=== PATIENT | female | born 1935 | race Caucasian/White ===

== ENCOUNTER 2018-03-27 08:57 | Day surgery (SDC) | payer OTHER ==
--- NOTE | 2018-03-24 14:47 | HP ---
Admitting History and Physical - Primary Care Physician PCP: Diaz Campos - Admission Chief Complaint: Recurrent right breast cancer History of Present Illness: 82 year old female who underwent right breast wide excision SNBX 12/14/2010 for 8mm well differentiated ductal cancer clear margins ER/[place]+ Her2 neg. no RT recommended and she could not tolerate endocrine therapy. She had a palpable right retroareolar density which we excisied in office. 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 History Source: Patient Limitations to Obtaining History: No Limitations - Past Medical History Cardiovascular: Yes: Hyperlipdemia - Past Surgical History Past Surgical History: Yes: Tonsillectomy (1953) Additional Past Surgical History: breast augmentation 1987 ankle surgery - Smoking History Smoking history: Former smoker Have you smoked in the past 12 months: No If you are a former smoker, when did you quit?: 9 years ago - Alcohol/Substance Use Hx Alcohol Use: Yes (do not drink since ) Home Medications - Allergies Allergies/Adverse Reactions: Allergies Allergy/AdvReac Type Severity Reaction Status Date / Time No Known Drug Allergies Allergy Verified 03/21/18 10:39 - Home Medications Home Medications: Ambulatory Orders Atorvastatin Ca [Lipitor] 10 mg PO HS 07/27/13 Family Disease History - Family Disease History Family Disease History: CA: Brother (prostate ca 72) Physical Examination Constitutional: Yes: Well Nourished Breast(s): Yes: Other (Left breast negative well healed right breast incision upper inner aspect . palpable right areolar density, no palpable adenopathy bilaterally) Problem List - Problems (1) Recurrent cancer of right breast Code(s): C50.911 - MALIGNANT NEOPLASM OF UNSP SITE OF RIGHT FEMALE BREAST Assessment/Plan right breast central wide excision, sentenel node biopsy ,lymphoscintogram, possible axillary node dissection, exchange of implant
[2018-03-27 09:31] VITALS: BMI 21.5
[2018-03-27] MEDS ORDERED: PROPOFOL 20 ML ONE (10:07)
[2018-03-27] MEDS ORDERED: SUCCINYLCHOLINE CHLORIDE 200 MG/10 ML VIAL ONE (10:07)
[2018-03-27] MEDS ORDERED: ePHEDrine SULFATE 50 MG/1 ML AMPULE ONE (10:31)
[2018-03-27] MEDS ORDERED: ONDANSETRON 4 MG/2 ML VIAL IVPUSH PRN ×2 (11:10→11:52)
[2018-03-27] MEDS ORDERED: KETOROLAC TROMETHAMINE 30 MG/1 ML VIAL IVPUSH PRN (11:10)
[2018-03-27] MEDS ORDERED: DEXTROSE 5%-0.45% SALINE 1,000 ML IV SCH (11:15)
[2018-03-27] MEDS ORDERED: LIDOCAINE HCL 2% JELLY (5 ML/TUBE) ONE (11:25)
[2018-03-27] MEDS ORDERED: DEXAMETHASONE SOD PHOSPHATE 4 MG/1 ML VIAL ONE (11:25)
[2018-03-27] MEDS ORDERED: ceFAZolin SODIUM 1 GM VIAL ONE (11:25)
[2018-03-27] MEDS ORDERED: PROMETHAZINE HCL 25 MG/1 ML VIAL IVPUSH PRN (11:52)
[2018-03-27] MEDS ORDERED: oxyCODONE HCL 5 MG TABLET PO PRN ×2 (11:52)
--- NOTE | 2018-03-27 13:18 | OP ---
DATE OF OPERATION: 03/27/2018 PREOPERATIVE DIAGNOSIS: Recurrent retroareolar right breast cancer. POSTOPERATIVE DIAGNOSIS: Recurrent retroareolar right breast cancer. PROCEDURE: Right breast central wide excision with right axillary sentinel lymph node biopsy and exchange of implant by Plastic Surgery. ANESTHESIA: General laryngeal mask airway. PRIMARY SURGEON: Jacquie Campos MD TELEPHONE INTERCEPTOR OPERATOR: RADHA Mata PRIMARY SURGEON FOR THE EXCHANGE OF IMPLANT AND PLACEMENT OF ALLODERM: Jacquie Robles MD COMPLICATIONS: None. Briefly, the patient is an 82-year-old, G2, P2, white female, who was initially diagnosed with a right breast cancer back in November 2010 and underwent a partial mastectomy, sentinel lymph node biopsy for an 8-mm, well-differentiated, invasive duct cancer which was ER/[place] positive, HER2/[place]ah negative. MammaPrint showed low-risk luminal type. She did not receive chemotherapy and was seen by Radiation Oncology. It was felt, given her age, it could be avoided. She could not tolerate therapy. She was being followed and was noted to have a palpable density in the retroareolar region of the right breast nipple-areolar complex, and biopsy showed a well-differentiated, invasive duct cancer which was again ER/[place] strongly positive, HER2/aleah negative with a low Ki-67. MRI was performed, just showing localized disease. She was advised on undergoing a central wide excision with removal of the nipple-areolar complex and exchange of the implant and placement of AlloDerm for radiation postoperatively. The patient was brought in for the procedure on March 27, 2018. She first underwent the lymphoscintigraphy through a phoenix-areolar injection of technetium 99 at [facility], then was brought to the [facility]. In the holding area, site verification was made, and informed consent was obtained. She was marked preoperatively by the plastic surgeon. The patient was brought into the operating room and laid on the OR table in the supine position. Venodynes were placed on the lower extremities. She received a gram of Ancef prior to incision. Both breasts were sterilely prepped and draped in the usual fashion. She was given general laryngeal mask airway anesthesia. Next, 3 mL of Lymphazurin blue were injected intradermally and peritumorally around the nipple-areolar complex, and massage was instituted. The right sentinel lymph node biopsy was first performed. We used the same incision from her prior sentinel lymph node biopsy, and dissection was undertaken and blue lymphatics were easily seen coursing to 2 blue, hot lymph nodes. The first sentinel lymph node had a 10-second gamma count of 1362, and second sentinel lymph node had a 10-second gamma count of 1464. A third node was removed which was found to be non-sentinel and sent separately to Pathology as non-sentinel lymph node. All 3 nodes were sent in formalin, labeled sentinel lymph nodes. Background count after removal of these 3 nodes was 41, and no other blue or hot nodes were found. Hemostasis was achieved. The axillary wound was closed using interrupted 2-0 plain suture, then interrupted 3-0 deep dermal Vicryl suture and a running 4-0 subcuticular Biosyn suture. At this point, the central wide excision was undertaken around the right breast nipple-areolar complex. An elliptical incision was made, encompassing the entire nipple-areolar complex all the way down to the capsule of the implant. Part of the pectoralis major muscle and capsule were completely removed on the posterior margin. The specimen was removed and oriented with a long lateral/short superior suture and placed in formalin, sent to Pathology as specimen. Separate margins were then taken on the superior, inferior, medial, and lateral aspects. We did use medium marking clips to emre out the superior, inferior, medial, and lateral aspects of the excision. Hemostasis was achieved. The old implant was removed. At this point, Dr. Robles became the primary surgeon, who performed exchange of the implant with placement of AlloDerm reconstruction. This will be dictated separately by Plastic Surgery, and all wounds of the breasts will be closed by Plastic Surgery. The patient will have a drain placed after the implant exchange and will be recovered and discharged home the same day once discharge criteria are met. She is to follow up in the office in the 1 week for a formal wound pathology check. All sponge and needle counts are correct at the end of the case, and estimated blood loss was about 20 mL. She was hemodynamically stable throughout. JACQUIE CAMPOS M.D. [id number]
[2018-03-27 15:22] VITALS: BP 129/64; PULSE 75; TEMP 98
--- NOTE | 2018-03-28 13:08 | OP ---
DATE OF OPERATION: 03/27/2018 SURGEON: Jacquie Robles MD SHALE PLANER OPERATOR HELPER SURGEON: Jacquie Campos MD PREOPERATIVE DIAGNOSIS: Right acquired chest wall deformity status post recurrent breast cancer and central wide excision of breast. POSTOPERATIVE DIAGNOSIS: Right acquired chest wall deformity status post recurrent breast cancer and central wide excision of breast. OPERATIVE PROCEDURE: Right breast reconstruction utilizing other technique, 85075. OPERATIVE INDICATION: Patient is an 82-year-old female who was brought to the operating room by Dr. Jacquie Campos for combined procedure because of her recurrent breast cancer in the central portion of the breast. Patient had previously undergone lumpectomy without radiation and now presents with a recurrence, which would require reconstruction as per Dr. Campos. The risks and benefits of surgical versus nonsurgical alternatives as well as the material complications were described to the patient preoperatively, and she agreed to the planned procedure. OPERATIVE PROCEDURE IN DETAIL: The patient was taken to the operating room by Dr. Jacquie Campos. His portion of the operation will be dictated under a separate cover, but basically included a central wide excision moving a large block of skin and subcutaneous tissue of the breast down through the subcutaneous tissue to the underlying capsule. At this point, a large section of capsule (capsulectomy) was then excised, and the implant removed. After removing the implant, this was sent for pathologic diagnosis. After multiple resections of tissue for margins, the capsule was then examined by me and copious irrigation and hemostasis was carried out by me. At this point, I began the procedure by doing a capsulotomy superior along the superior portion of the breast up under the pectoralis major muscle to the midline and laterally to accept the new device. After hemostasis was meticulously obtained and capsulectomy performed, an 8 x 16 sheet of AlloDerm acellular dermal matrix was brought into the field. Because of the need for radiation therapy, a large sheet of material was then sutured superiorly up under the pectoralis major muscle superiorly at the 2nd rib, medially to the sternal fibers, to the lateral axillary line, and then, down to the defect in the capsule itself. An area was left open for insertion of a new implant, which was chosen. A Natrelle Inspira breast implant, style SRM 405 mL was placed into this breast pocket. After copious irrigation with triple antibiotic solution, a 15 Davy drain was brought out through a separate stab wound in the subcutaneous tissue, and then advancement flap closures were carried out. Using 2-0 Vicryl sutures on the deep tissue, the deepest tissue was brought over the AlloDerm for reconstructive purposes. The 2nd layer of 3-0 PDS suture was placed into the dermis and a 4-0 subcuticular Biosyn suture was placed onto the skin. A Dermabond and Steri-Strip dressing was placed, and the patient was dressed with fluff dressings and a compression bra. She tolerated the procedure well. She went to the recovery room in satisfactory condition. JACQUIE ROBLES M.D. [id number] MTDKareem
--- NOTE | 2018-04-03 13:33 | PATH ---
Surgical Pathology Report Patient Name: LUCIANA LEOS [facility]. Rec. #: [id number] /Age/Gender: 1935 (Age: 82) / F Account: [id number] Location: [facility] Taken: 03/27/2018 Received: 03/27/2018 Reported: 04/03/2018 Physicians: Diaz Campos M.D. Specimen(s) Received A: RIGHT AXILLARY SENTINEL NODE #1 B: RIGHT AXILLARY SENTINEL NODE #2 C: RIGHT AXILLARY NON SENTINEL NODE D: RIGHT BREAST WIDE EXCISION E: RIGHT BREAST INFERIOR MARGIN F: RIGHT BREAST SUPERIOR MARGIN G: RIGHT BREAST MEDIAL MARGIN H: RIGHT BREAST LATERAL MARGIN I: RIGHT BREAST IMPLANT Clinical History Invasive retroareolar Final Diagnosis A. RIGHT AXILLARY SENTINEL NODE #1, EXCISION: ONE LYMPH NODE, NEGATIVE FOR METASTATIC CARCINOMA (0/1). B. RIGHT AXILLARY SENTINEL NODE #2, EXCISION: ONE LYMPH NODE, NEGATIVE FOR METASTATIC CARCINOMA (0/1). C. RIGHT AXILLARY NON-SENTINEL NODE, EXCISION: ONE LYMPH NODE, POSITIVE FOR METASTATIC CARCINOMA (1/1). THE TUMOR DEPOSIT MEASURES 4 MM IN GREATEST DIMENSION (MACROMETASTASES). EXTRANODAL EXTENSION NOT IDENTIFIED. D. RIGHT BREAST WIDE EXCISION: INVASIVE DUCTAL CARCINOMA, WELL DIFFERENTIATED (TUBULE SCORE: 2/3, NUCLEAR GRADE: 2/3, MITOTIC SCORE: 1/3; TOTAL SCORE: 5/9, TRUPTI GRADE 1). INVASIVE CARCINOMA MEASURES 0.9 CM IN GREATEST DIMENSION, MICROSCOPICALLY. SURGICAL MARGINS ARE UNINVOLVED BY CARCINOMA. INVASIVE CARCINOMA IS AT 0.4 CM FROM THE CLOSEST (DEEP) MARGIN. SEE SPECIMENS E TO H FOR FINAL MARGINS. TUMOR INVADES INTO THE DERMIS. THE EPIDERMIS IS NOT INVOLVED. LYMPHOVASCULAR INVASION NOT IDENTIFIED. 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 PRIOR BIOPSY SITE CHANGES ARE PRESENT. PATHOLOGIC STAGE (pTNM): pT1b pN1a SEE ALSO INVASIVE CARCINOMA CASE SUMMARY BELOW. E. RIGHT BREAST INFERIOR MARGIN, EXCISION: BENIGN BREAST TISSUE. F. RIGHT BREAST SUPERIOR MARGIN, EXCISION: BENIGN BREAST TISSUE AND SKELETAL MUSCLE. G. RIGHT BREAST MEDIAL MARGIN, EXCISION: BENIGN BREAST TISSUE. H. RIGHT BREAST LATERAL MARGIN, EXCISION: BREAST TISSUE WITH FOCAL LOBULAR CARCINOMA IN SITU (LCIS), CLASSIC TYPE. See comment. Comment: Immunostain performed at [place], [place] ([id number]) and interpreted at [facility] showed the tumor cells are negative for E-cadherin, which supports the above diagnosis of LCIS. Positive and negative controls (internal if applicable) show appropriate results. I. RIGHT BREAST IMPLANT, REMOVAL: BREAST IMPLANT, GROSS EXAMINATION ONLY. Interdepartmental case reviewed with consensus on diagnosis. Comments Breast Invasive Carcinoma: Surgical Pathology Case Summary (Based on AJCC TNM 8 th edition) Procedure _x_ Excision (less than total mastectomy) Specimen Laterality _x_ Right Tumor Size _x_ Greatest dimension of largest invasive focus >1 mm (specify exact measurement) (millimeters): 9mm Histologic Type _x_ Invasive carcinoma of no special type (ductal, not otherwise specified) Histologic Grade (Eek Histologic Score) Glandular (Acinar)/Tubular Differentiation _x_ Score 2 (10% to 75% of tumor area forming glandular/tubular structures) Nuclear Pleomorphism _x_ Score 2 Mitotic Rate _x_ Score 1 Overall Grade _x_ Grade 1 Tumor Focality _x_ Single focus of invasive carcinoma Ductal Carcinoma In Situ (DCIS) _x_ No DCIS in specimen Tumor Extension (required only if the structures are present and involved) Skin _x_ Invasive carcinoma directly invades into the dermis or epidermis without skin ulceration (this does not change the T stage) Margins Invasive Carcinoma Margins _x_ Uninvolved by invasive carcinoma Distance from closest margin (millimeters): 4 mm from deep margin. DCIS Margins _x_ No DCIS in specimen Regional Lymph Nodes Number of Lymph Nodes with Macrometastases (>2 mm): 1 Number of Lymph Nodes with Micrometastases (>0.2 mm to 2 mm and/or >200 cells): 0 Number of Lymph Nodes with Isolated Tumor Cells (=0.2 mm and =200 cells): 0 Size of Largest Metastatic Deposit (millimeters): 4 mm Extranodal Extension: _x_ Not identified Number of Lymph Nodes Examined: 3 Number of Bastrop Nodes Examined: 2 Treatment Effect No known presurgical therapy Lymphovascular Invasion __x_ Not identified Pathologic Stage Classification (pTNM, AJCC 8th Edition) TNM Descriptors (required only if applicable) _x_ r (recurrent) Primary Tumor (Invasive Carcinoma) (pT) _x_ pT1b: Tumor >5 mm but =10 mm in greatest dimension Regional Lymph Nodes (pN) Modifier (required only if applicable) _x_ (sn): Bastrop node(s) evaluated. Category (pN) _x_ pN1a: Metastases in 1 to 3 axillary lymph nodes, at least 1 metastasis larger than 2.0 mm Biomarker Studies Results of ER and MA studies performed on prior biopsy ([id number]) at [facility] are as follows: ER (clone [id number] mouse monoclonal antibody by [employer]): 95 % nuclear staining with strong intensity (Positive). MA (clone16 mouse monoclonal antibody by [employer]): 95 % nuclear staining with strong intensity (Positive). Results of Her2 (IHC) & Ki-67 studies performed on prior biopsy ([id number]) at [place], [place] ([id number]) are as follows: Her2 IHC (EP3 from [employer], formerly known as [id number], using Garcia Polymer Refine detection kit): 0 (negative) Ki-67: ~2% (low proliferative index) Electronically Signed Thompson Tillman M.D. Gross Description A. Received in formalin labeled "right axillary sentinel node #1," is a 1.4 x 0.5 x 0.5 cm lymph node with attached fat. The specimen is bisected and entirely submitted in one cassette. B. Diffuse in formalin labeled "right axillary sentinel node #2," is a 0.8 x 0.6 x 0.5 cm lymph node with attached fat. The specimen is bisected and entirely submitted in one cassette. C. Received in formalin labeled "right axillary non-sentinel node," is a 0.6 x 0.5 x 0.3 cm lymph node. The specimen is submitted in toto in one cassette. D. Received in formalin labeled "right breast wide excision," is a 7.6 x 4.4 x 2.4 cm portion of fibroadipose tissue with a short suture marking the superior aspect and a long suture marking the lateral aspect of the specimen, per the surgeon. There is no needle localization wire present. The anterior surface displays a 7.6 x 3.8 cm davies, elliptical portion of skin with a 1.6 cm in diameter nipple. The deep margin displays a 4.0 x 2.0 cm portion of fibrous capsule. The specimen is inked as follows: Superior blue; inferior green; lateral red; medial yellow; deep black. The specimen is serially sectioned from lateral to medial. Sectioning reveals a 1.3 x 1.3 x 1.2 cm davies, indurated mass abutting the nipple. The mass is 0.3 cm from the deep margin and 0.6 cm from the inferior margin. The remaining margins appear clear mass. The remaining breast parenchyma displays abundant dense white fibrous tissue. Label Machine Operator sections are submitted in 7 cassettes as follows: 1-full face section of mass with skin/nipple and deep margin; 2-additional section of mass with skin/nipple, deep margin and inferior margin; 3-additional inferior margin;-superior margin; 5-lateral margin; 6-medial margin; 7-uninvolved breast parenchyma with superior and deep margins. Time to formalin fixation: 26 minutes Total formalin fixation time: Approximately 31 hours. E. Received in formalin "right breast inferior margin," is a 2.0 x 1.8 x 0.4 cm portion of fibroadipose tissue with a suture marking the biopsy cavity side, per the surgeon. The new margin is inked blue and the specimen is serially sectioned. The specimen is entirely submitted in 3 cassettes. F. Received in formalin labeled "right breast superior margin," is a 2.3 x 1.1 x 0.4 cm portion of fibroadipose tissue with a suture marking the biopsy cavity side, per the surgeon. The new margin is inked blue and the specimen is serially sectioned. The specimen is entirely submitted in 2 cassettes. G. Received in formalin labeled "right breast medial margin," is a 1.3 x 1.0 x 0.8 cm portion of fibroadipose tissue with a suture marking the biopsy cavity side, per the surgeon. The new margin is inked blue and the specimen is serially sectioned. Specimen is entirely submitted in 2 cassettes. H. Received in formalin labeled "right breast lateral margin," is a 2.3 x 1.7 x 0.6 cm portion of fibroadipose tissue with a suture marking the biopsy cavity side, per the surgeon. The new margin is inked blue and the specimen is serially sectioned. The specimen is entirely submitted in 2 cassettes. I. Received fresh labeled "right breast implant," is a 12 cm in diameter x 3.5 cm in depth clear, rubbery breast implant. No soft tissue is present. No sections are submitted, gross only. 03/28/2018 [facility]03/28/2018
== END 2018-03-27 13:55 | disposition home or self-care (01) ==
LOC: FASU 08:57
PROVIDERS: ATTEND Surgery Surgical Oncology
PROC: 0HBT0ZZ Excision of Right Breast, Open Approach (ICD-10-PCS; principal; 2018-03-27 10:34)
PROC: 0HRT07Z Replacement of Right Breast with Autologous Tissue Substitute, Open Approach (ICD-10-PCS; 2018-03-27 10:34)
DX: C50.911 Malignant neoplasm of unspecified site of right female breast (principal); M95.4 Acquired deformity of chest and rib; Z90.11 Acquired absence of right breast and nipple
CPT/HCPCS: 71046-TC-FY; 78195-TC; 88300-TC; 88307-TC; 94760; A9541

== ENCOUNTER 2021-10-26 04:41 | Day surgery (SDC) | payer OTHER ==
[2021-10-23 15:51] VITALS: BMI 22.4
[2021-10-26] MEDS ORDERED: LIDOCAINE HCL 2% JELLY 10 ML CARTRIDGE ONE (11:15)
[2021-10-26] MEDS ORDERED: LIDOCAINE HCL 2% JELLY 10 ML CARTRIDGE TP ONE (11:38)
[2021-10-26 11:53] VITALS: TEMP 97.5
[2021-10-26 12:41] VITALS: PULSE 75
[2021-10-26] MEDS ORDERED: ACETAMINOPHEN 1000 MG/100 ML BAG IVPB ONE (12:55)
[2021-10-26 13:44] VITALS: BP 151/68
== END 2021-10-26 13:35 | disposition home or self-care (01) ==
LOC: JASU-ENDO 04:41
PROVIDERS: ATTEND Internal Medicine Gastroenterology
PROC: 06LY8CC Occlusion of Hemorrhoidal Plexus with Extraluminal Device, Via Natural or Artificial Opening Endoscopic (ICD-10-PCS; 2021-10-26)
PROC: 0DJD8ZZ Inspection of Lower Intestinal Tract, Via Natural or Artificial Opening Endoscopic (ICD-10-PCS; principal; 2021-10-26 11:45)
DX: Z12.11 Encounter for screening for malignant neoplasm of colon (principal); Z86.010 Personal history of colon polyps; K64.8 Other hemorrhoids
CPT/HCPCS: J0131